=== PATIENT | male | born 1980 | race Caucasian/White ===

== ENCOUNTER 2018-03-04 19:06 | Emergency (ER) | payer BC ==
--- NOTE | 2018-03-04 19:30 | EDM.PDOC ---
ED HPI GENERAL MEDICAL PROBLEM - General Chief Complaint: Fever Stated Complaint: STOMACH PAIN AND HEADACHE UNABLE TO EAT Time Seen by Provider: 03/04/18 19:30 Source of Information: Reports: Patient History Limitations: Reports: No Limitations - History of Present Illness INITIAL COMMENTS - FREE TEXT/NARRATIVE: 37-year-old male presents to the ED with a 3 day history of repetitive nausea vomiting and diarrhea and associated mildly productive cough. Intermittent fever chills particularly at nighttime wakes in a cold sweat. He was home to [place] over the last 2 weeks and his 2 children were both ill with gastroenteritis symptoms. Also one of the children had strep throat. His throat is moderately sore getting worse over the last 2 days. Sputum is greenish in color. No hemoptysis no pleuritic chest pain. States he can keep water down but if he tries to eat solids they come right back up. Diarrhea is usually once or twice per day usually high volume fluid losses. No blood per rectum. Onset: Gradual Onset Date: 03/01/18 Duration: Day(s):, Getting Worse Location: Reports: Chest, Abdomen Quality: Reports: Other (diarrhea. naysea and vomiting. ) Severity: Moderate Improves with: Reports: None Worsens with: Reports: Eating Context: Denies: Activity, Exercise, Lifting, Sick Contact, Trauma, Other Associated Symptoms: Reports: Chest Pain, Fever/Chills, Loss of Appetite, Malaise, Nausea/Vomiting, Shortness of Breath, Weakness. Denies: Confusion, Cough, cough w sputum, Diaphoresis, Rash, Seizure, Syncope Treatments APPLIANCE INSTALLER: Reports: Other (see below) Other Treatments APPLIANCE INSTALLER: alkaselser cold Headache Pain Score (Numeric/FACES): 7 - Related Data Allergies Allergy/AdvReac Type Severity Reaction Status Date / Time No Known Allergies Allergy Verified 03/04/18 19:26 Home Meds: Home Meds Doxycycline [Vibramycin] 100 mg PO BID #20 tab 03/04/18 [Rx] Ondansetron [Zofran] 4 mg BUCCAL Q6H PRN #8 tab 03/04/18 [Rx] Social & Family History - Living Situation & Occupation Living situation: Reports: Single Occupation: Employed ED ROS GENERAL - Review of Systems Review Of Systems: See Below Constitutional: Reports: Fever, Chills, Malaise, Weakness, Fatigue, Night Sweats , Diaphoresis, Decreased Appetite, Weight Loss HEENT: Reports: No Symptoms Respiratory: Reports: Cough, Sputum (greenish in color.). Denies: Shortness of Breath, Wheezing, Pleuritic Chest Pain Cardiovascular: Reports: No Symptoms Endocrine: Reports: Fatigue GI/Abdominal: Reports: Diarrhea, Decreased Appetite, Nausea, Vomiting ( intermittent.) : Reports: No Symptoms Musculoskeletal: Reports: No Symptoms Skin: Reports: No Symptoms Neurological: Reports: No Symptoms Psychiatric: Reports: No Symptoms Hematologic/Lymphatic: Reports: No Symptoms Immunologic: Reports: No Symptoms ED EXAM, GENERAL - Physical Exam Exam: See Below Exam Limited By: No Limitations General Appearance: Alert, WD/WN, No Apparent Distress, Other Eye Exam: Bilateral Eye: Normal Inspection (Is afebrile time of my exam.) Ears: Normal TMs (Other than some scarring on the left tympanic membrane.) Throat/Mouth: Normal Lips, Normal Teeth, Normal Gums, Other Head: Atraumatic, Normocephalic Neck: Normal Inspection, Supple, Non-Tender, Full Range of Motion. No: Carotid Bruit, Lymphadenopathy (L), Lymphadenopathy (R) Respiratory/Chest: No Respiratory Distress, Lungs Clear, Normal Breath Sounds, No Accessory Muscle Use Cardiovascular: Normal Peripheral Pulses, Regular Rate, Rhythm, No Edema, No Gallop, No Murmur, No Rub, JVD Peripheral Pulses: 3+: Posterior Tibial (L), Posterior Tibial (R), Dorsalis Pedis (L), Dorsalis Pedis (R) GI/Abdominal: Normal Bowel Sounds, Soft, Non-Tender, No Organomegaly, No Abnormal Bruit, No Mass, Pelvis Stable Back Exam: Normal Inspection, Full Range of Motion. No: CVA Tenderness (L), CVA Tenderness (R) Extremities: Normal Inspection, Normal Range of Motion, Non-Tender, No Pedal Edema, Normal Capillary Refill Neurological: Alert, Oriented, CN II-XII Intact, Normal Cognition, Normal Gait Psychiatric: Normal Affect, Normal Mood Skin Exam: Warm, Dry, Intact, Normal Color, No Rash Course - Vital Signs Last Recorded V/S: Last Vital Signs Temp 37.2 C 03/04/18 19:24 Pulse 97 03/04/18 19:24 Resp 18 03/04/18 19:24 BP 134/85 03/04/18 19:24 Pulse Ox 100 03/04/18 19:24 Orthostatic Blood Pressure [ 121/78 Standing] Orthostatic Blood Pressure [ 132/90 Sitting] Orthostatic Blood Pressure [ 127/75 Supine] - Orders/Labs/Meds Orders: Active Orders 24 hr Category Date Time Status Orthostatic Vital Signs [RC] ASDIRECTED Care 03/04/18 19:37 Active Chest 1V Frontal [CR] Stat Exams 03/04/18 19:37 Taken CULTURE STOOL + SHIGATOX [RM] Stat Lab 03/04/18 19:38 Ordered STREP SCRN A RAPID W CULT CONF [RM] Stat Lab 03/04/18 19:48 Ordered URINALYSIS W/MICROSCOPIC [UA W/MICROSCOPIC] [URIN] Stat Lab 03/04/18 20:42 Ordered WBC, STOOL [OP] Stat Lab 03/04/18 19:38 Ordered Dextrose 5%-Lactated Ringers 1,000 ml Med 03/04/18 19:45 Active IV ASDIRECTED Medication Orders Dextrose/Lactated Ringer's (Dextrose 5%-Lactated Ringers) 1,000 mls @ 999 mls/ hr IV ASDIRECTED ANDRIY Last Admin: 03/04/18 19:54 Dose: 999 mls/hr Labs: Laboratory Tests 03/04/18 03/04/18 Range/Units 19:48 19:48 WBC 6.88 (4.23-9.07) K/mm3 RBC 5.49 (4.63-6.08) M/mm3 Hgb 16.6 (13.7-17.5) gm/L Hct 48.4 (40.1-51.0) % MCV 88.2 (79.0-92.2) fl MCH 30.2 (25.7-32.2) pg MCHC 34.3 (32.2-35.5) g/dl RDW Std Deviation 39.8 (35.1-43.9) fL Plt Count 208 (163-337) K/mm3 MPV 9.2 L (9.4-12.3) fl Neutrophils % (Manual) 69 H (40-60) % Band Neutrophils % 0 (0-10) % Lymphocytes % (Manual) 25 (20-40) % Atypical Lymphs % 0 % Monocytes % (Manual) 6 (2-10) % Eosinophils % (Manual) 0 L (0.8-7.0) % Basophils % (Manual) 0 L (0.2-1.2) Platelet Estimate Adequate Plt Morphology Comment Normal RBC Morph Comment Normal Sodium 137 (136-145) mEq/L Potassium 3.6 (3.5-5.1) mEq/L Chloride 100 (98-107) mEq/L Carbon Dioxide 27 (21-32) mEq/L Anion Gap 13.6 (5-15) BUN 8 (7-18) mg/dL Creatinine 1.2 (0.7-1.3) mg/dL Est Cr Clr Drug Dosing 86.18 mL/min Estimated GFR (MDRD) > 60 (>60) mL/min BUN/Creatinine Ratio 6.7 L (14-18) Glucose 107 H (74-106) mg/dL Calcium 8.8 (8.5-10.1) mg/dL Total Bilirubin 0.5 (0.2-1.0) mg/dL AST 24 (15-37) U/L ALT 31 (16-63) U/L Alkaline Phosphatase 62 (46-116) U/L C-Reactive Protein 22.6 H* (<1.0) mg/dL Total Protein 7.9 (6.4-8.2) g/dl Albumin 3.5 (3.4-5.0) g/dl Globulin 4.4 gm/dL Albumin/Globulin Ratio 0.8 L (1-2) Lipase 125 (73-393) U/L Meds: Medications Generic Name Dose Route Start Last Admin Trade Name Freq PRN Reason Stop Dose Admin Dextrose/Lactated Ringer's 1,000 mls @ 999 mls/hr 03/04/18 19:45 03/04/18 19: 54 Dextrose 5%-Lactated Ringers IV 999 mls/hr ASDIRECTED ANDRIY Administration Discontinued Medications Generic Name Dose Route Start Last Admin Trade Name Freq PRN Reason Stop Dose Admin Metoclopramide HCl 10 mg 03/04/18 19:37 03/04/18 19:55 Reglan IVPUSH 03/04/18 19:38 10 mg ONETIME ONE Administration - Radiology Interpretation Free Text/Narrative:: 37-year-old male presents the ED with a three-day history of illness. Associated fever chills and rigors particularly noted at bedtime with associated diaphoresis and night sweats. Cough is productive of greenish sputum intermittently. Cough is intermittent and paroxysmal. Associated nausea if he tries to take anything solid he usually vomits. He is able to keep water down. Is still making urine. He is associated diarrhea stools possibly starvation stools. She is a one large loose bowel movement per day without blood. Nose reveals significant abdominal cramping pain. He states he was home in [place] with his family or 2 children last week in both radial with gastroenteritis symptoms. Also one had strep throat. Plan rapid strep. One view chest x-ray routine labs. IV will be D5 Ringer's lactate at open. Orthostatic BPs to be done. Dual if he happens to go will be tested for white blood cells. - Re-Assessments/Exams Free Text/Narrative Re-Assessment/Exam: 03/04/18 20:20 Chest x-ray reveals clear lung dubois with no signs of pneumonia. Cardiac silhouette is normal. Orthostatic BPs are normal. 03/04/18 20:48Labs reveal a low white count at 3.98. Differential 76% neutrophils no bands. Hemoglobin is 9.2 with hematocrit of 30.6. Platelet count is 81,090 from cytopenia. PT is 15.1 with an INR of 1.39. I she is auto anticoagulated from cirrhosis. PTT is 31. Sodium is 3139 with a potassium of 3.8. Chloride is 107 with a bicarbonate 25. Anion gap is 10.8. BUNs 9 with a creatinine of 1.2. GFR is 43 i.e. stage III chronic kidney disease glucose is elevated at 164. Lactic acid slightly elevated at 2.1. Calcium was normal at 8.9. Magnesium is 1.8. Total bilirubin is 1.1 with an AST of 33 and ALT of 19. Alk phosphatase is mildly elevated at 219. Serum ammonia level is in the normal range at 21. Troponin I is elevated at 0.135. C-reactive protein is 1.5. Albumin fraction is very low at 2.3. Of note strep screen is also positive. Plan : patient will finish up his IV fluids.. We'll start him on doxycycline 100 mg twice daily for the next 10 days. He'll take to the first dose. Zofran 4 mg sublingual every 4-6 hours necessary for nausea relief so that he can eat and drink. Departure - Departure Time of Disposition: 21:00 Disposition: Home, Self-Care 01 Condition: Fair Clinical Impression: Strep pharyngitis, Bronchitis, Gastroenteritis - Discharge Information Prescriptions: Doxycycline [Vibramycin] 100 mg PO BID #20 tab Ondansetron [Zofran] 4 mg BUCCAL Q6H PRN #8 tab PRN Reason: nausea or vomiting Referrals: PCP,None [Primary Care Provider] - Forms: ED Department Discharge Additional Instructions: Evaluation the emergency room today in regards to 3 day history of illness with fever chills night sweats sore throat productive cough of greenish sputum and gastroenteritis symptoms with nausea vomiting and diarrhea. Evaluation reveals low-grade fever. The oropharynx is quite inflamed with a history of strep exposure rapid strep was carried out and proved to be positive. Chest x-ray was negative for pneumonia. Labs reveal no significant abnormalities of your electrolytes but does support mild dehydration. You're treated with IV fluids 1 L in the ED. He were given medication Reglan 10 mg IV for nausea relief. Initial dose of antibiotic was given in the ED --Ancef 1 g. this starts to work in a couple of hours and may get you feeling better but quicker. Antibiotic is to be Doxil cycle 100 mg twice daily. If you're able to eat a bit tonight you may take to right away is the first dose and then one twice daily until they're gone. I should be Gatorade Powerade and light diet such as soups without cream or dairy products. Avoid all dairy products and no apple or grape juice until stools are formed backup. Should expect marked improvement over the next 36 hours. Diarrhea should go away completely. May use Zofran under the tongue every 4 hours as needed to relieve any nausea or vomiting. - My Orders Last 24 Hours: My Active Orders 03/04/18 19:37 Orthostatic Vital Signs [RC] ASDIRECTED Chest 1V Frontal [CR] Stat 03/04/18 19:38 CULTURE STOOL + SHIGATOX [RM] Stat WBC, STOOL [OP] Stat 03/04/18 19:45 Dextrose 5%-Lactated Ringers 1,000 ml IV ASDIRECTED 03/04/18 19:48 STREP SCRN A RAPID W CULT CONF [RM] Stat 03/04/18 20:42 URINALYSIS W/MICROSCOPIC [UA W/MICROSCOPIC] [URIN] Stat - Assessment/Plan Last 24 Hours: My Active Orders 03/04/18 19:37 Orthostatic Vital Signs [RC] ASDIRECTED Chest 1V Frontal [CR] Stat 03/04/18 19:38 CULTURE STOOL + SHIGATOX [RM] Stat WBC, STOOL [OP] Stat 03/04/18 19:45 Dextrose 5%-Lactated Ringers 1,000 ml IV ASDIRECTED 03/04/18 19:48 STREP SCRN A RAPID W CULT CONF [RM] Stat 03/04/18 20:42 URINALYSIS W/MICROSCOPIC [UA W/MICROSCOPIC] [URIN] Stat
[2018-03-04] MEDS ORDERED: Metoclopramide 10 MG/2 ML SDV IVPUSH ONE (19:37)
[2018-03-04] MEDS ORDERED: Dextrose 5%-Lactated Ringers 1,000 ML IV SCH (19:45)
[2018-03-04] MEDS ORDERED: ceFAZolin 1,000 MG VIAL IVPUSH ONE (20:56)
[2018-03-04] MEDS ORDERED: ceFAZolin 1 GM Vial ONE (21:00)
[2018-03-04] MEDS ORDERED: ceFAZolin 1 GM Vial IM ONE (21:07)
--- NOTE | 2018-03-08 09:02 | CR ---
Chest: Portable view of the chest was obtained. Comparison: No prior study. Slight density is noted above the left hemidiaphragm within the left lung base. Lungs otherwise are clear. Heart size and mediastinum are normal. Bony structures appear grossly intact. Impression: 1. Slight density within the left lower lung mostly having the appearance of atelectasis but difficult to exclude minimal area of pneumonia. Diagnostic code #3
== END 2018-03-04 21:18 | disposition home or self-care (01) ==
LOC: JD.ED 19:06
DX: J02.0 Streptococcal pharyngitis (principal); J40 Bronchitis, not specified as acute or chronic; K52.9 Noninfective gastroenteritis and colitis, unspecified
CPT/HCPCS: 36415; 71045; 80053; 81001; 83690; 85007; 85027; 86140; 87430; 96361; 96374; 96375; 99284; J0690; J2765; J7042